=== PATIENT | male | born 1950 | race Caucasian/White ===

== ENCOUNTER 2017-09-19 06:50 | Outpatient (CLI) | payer OTHER | END 2017-09-19 07:04 | disposition home or self-care (01) | LOC: LAB 06:50 | DX: D68.8 Other specified coagulation defects (principal) ==

== ENCOUNTER 2017-10-10 06:19 | Outpatient (CLI) | payer OTHER | END 2017-10-10 06:29 | disposition home or self-care (01) | LOC: LAB 06:19 | DX: D68.8 Other specified coagulation defects (principal) ==

== ENCOUNTER → 2017-10-17 06:22 | Outpatient (CLI) | payer OTHER | END | disposition home or self-care (01) | LOC: LAB 06:22 | DX: D68.8 Other specified coagulation defects (principal) ==

== ENCOUNTER 2017-11-14 06:24 | Outpatient (CLI) | payer OTHER | END 2017-11-14 06:32 | disposition home or self-care (01) | LOC: LAB 06:24 | DX: D68.8 Other specified coagulation defects (principal) ==

== ENCOUNTER → 2017-12-05 06:20 | Outpatient (CLI) | payer OTHER | END | disposition home or self-care (01) | LOC: LAB 06:20 | DX: D47.3 Essential (hemorrhagic) thrombocythemia (principal); D51.0 Vitamin B12 deficiency anemia due to intrinsic factor deficiency; R97.0 Elevated carcinoembryonic antigen [CEA]; I26.09 Other pulmonary embolism with acute cor pulmonale; E03.9 Hypothyroidism, unspecified; E04.2 Nontoxic multinodular goiter; I10 Essential (primary) hypertension; D68.8 Other specified coagulation defects; E03.8 Other specified hypothyroidism; D50.8 Other iron deficiency anemias ==

== ENCOUNTER → 2018-01-29 06:30 | Outpatient (CLI) | payer OTHER | END | disposition home or self-care (01) | LOC: LAB 06:30 | DX: D47.3 Essential (hemorrhagic) thrombocythemia (principal); D51.0 Vitamin B12 deficiency anemia due to intrinsic factor deficiency; R97.0 Elevated carcinoembryonic antigen [CEA]; I26.09 Other pulmonary embolism with acute cor pulmonale; E03.9 Hypothyroidism, unspecified; E04.2 Nontoxic multinodular goiter; I10 Essential (primary) hypertension; D68.8 Other specified coagulation defects; D51.8 Other vitamin B12 deficiency anemias ==

== ENCOUNTER → 2018-02-16 06:19 | Outpatient (CLI) | payer OTHER | END | disposition home or self-care (01) | LOC: LAB 06:19 | DX: D47.3 Essential (hemorrhagic) thrombocythemia (principal); D51.0 Vitamin B12 deficiency anemia due to intrinsic factor deficiency; R97.0 Elevated carcinoembryonic antigen [CEA]; I26.09 Other pulmonary embolism with acute cor pulmonale; E03.8 Other specified hypothyroidism; E04.2 Nontoxic multinodular goiter; I10 Essential (primary) hypertension; D68.8 Other specified coagulation defects; D51.8 Other vitamin B12 deficiency anemias ==

== ENCOUNTER 2018-03-20 06:18 | Outpatient (CLI) | payer OTHER | END 2018-03-20 06:46 | disposition home or self-care (01) | LOC: LAB 06:18 | DX: D47.3 Essential (hemorrhagic) thrombocythemia (principal); D68.8 Other specified coagulation defects ==

== ENCOUNTER 2018-04-23 06:19 | Outpatient (CLI) | payer OTHER | END 2018-04-23 06:35 | disposition home or self-care (01) | LOC: LAB 06:19 → RAD 06:19 → LAB 06:35 | DX: E11.39 Type 2 diabetes mellitus with other diabetic ophthalmic complication (principal); I15.8 Other secondary hypertension; D68.32 Hemorrhagic disorder due to extrinsic circulating anticoagulants; D69.8 Other specified hemorrhagic conditions; I10 Essential (primary) hypertension; I11.9 Hypertensive heart disease without heart failure; E78.2 Mixed hyperlipidemia; E55.9 Vitamin D deficiency, unspecified ==

== ENCOUNTER → 2018-06-06 06:17 | Outpatient (CLI) | payer OTHER | END | disposition home or self-care (01) | LOC: LAB 06:17 | DX: D47.3 Essential (hemorrhagic) thrombocythemia (principal); D68.8 Other specified coagulation defects ==

== ENCOUNTER → 2018-06-15 06:09 | Outpatient (CLI) | payer OTHER | END | disposition home or self-care (01) | LOC: LAB 06:09 | DX: N40.1 Benign prostatic hyperplasia with lower urinary tract symptoms (principal) ==

== ENCOUNTER → 2018-07-06 06:27 | Outpatient (CLI) | payer OTHER | END | disposition home or self-care (01) | LOC: LAB 06:27 | DX: N40.0 Benign prostatic hyperplasia without lower urinary tract symptoms (principal); D50.8 Other iron deficiency anemias; I10 Essential (primary) hypertension; D68.8 Other specified coagulation defects ==

== ENCOUNTER → 2018-08-01 06:20 | Outpatient (CLI) | payer OTHER | END | disposition home or self-care (01) | LOC: LAB 06:20 | DX: D47.3 Essential (hemorrhagic) thrombocythemia (principal); D51.0 Vitamin B12 deficiency anemia due to intrinsic factor deficiency; R97.0 Elevated carcinoembryonic antigen [CEA]; I26.09 Other pulmonary embolism with acute cor pulmonale; E03.8 Other specified hypothyroidism; E04.2 Nontoxic multinodular goiter; I10 Essential (primary) hypertension; D50.8 Other iron deficiency anemias; D51.8 Other vitamin B12 deficiency anemias; D68.8 Other specified coagulation defects ==

== ENCOUNTER 2018-09-18 06:26 | Outpatient (CLI) | payer OTHER | END 2018-09-18 06:38 | disposition home or self-care (01) | LOC: LAB 06:26 | DX: I11.9 Hypertensive heart disease without heart failure (principal); E78.00 Pure hypercholesterolemia, unspecified; Z79.01 Long term (current) use of anticoagulants ==

== ENCOUNTER 2018-10-29 07:07 | Outpatient (CLI) | payer OTHER | END 2018-10-29 07:15 | disposition home or self-care (01) | LOC: LAB 07:07 | DX: D50.8 Other iron deficiency anemias (principal); I10 Essential (primary) hypertension; D68.8 Other specified coagulation defects ==

== ENCOUNTER 2018-11-17 07:12 | Outpatient (CLI) | payer OTHER | END 2018-11-17 07:27 | disposition home or self-care (01) | LOC: LAB 07:12 | DX: D50.8 Other iron deficiency anemias (principal); I10 Essential (primary) hypertension; D68.8 Other specified coagulation defects ==

== ENCOUNTER 2018-11-30 06:33 | Outpatient (CLI) | payer OTHER | END 2018-11-30 06:40 | disposition home or self-care (01) | LOC: LAB 06:33 | DX: D47.3 Essential (hemorrhagic) thrombocythemia (principal); D51.0 Vitamin B12 deficiency anemia due to intrinsic factor deficiency; R97.0 Elevated carcinoembryonic antigen [CEA]; I26.09 Other pulmonary embolism with acute cor pulmonale; E03.8 Other specified hypothyroidism; E04.2 Nontoxic multinodular goiter; I10 Essential (primary) hypertension; D50.8 Other iron deficiency anemias; D51.8 Other vitamin B12 deficiency anemias; E78.2 Mixed hyperlipidemia; D68.8 Other specified coagulation defects ==

== ENCOUNTER 2018-12-27 07:08 | Outpatient (CLI) | payer OTHER | END 2018-12-27 10:23 | disposition home or self-care (01) | LOC: LAB 07:08 | DX: I10 Essential (primary) hypertension (principal); N18.3 Chronic kidney disease, stage 3 (moderate) ==

== ENCOUNTER → 2018-12-29 08:18 | Outpatient (CLI) | payer OTHER | END | disposition home or self-care (01) | LOC: LAB 08:18 | DX: N18.3 Chronic kidney disease, stage 3 (moderate) (principal); I10 Essential (primary) hypertension; D68.8 Other specified coagulation defects ==

== ENCOUNTER 2019-01-17 06:22 | Outpatient (CLI) | payer OTHER | END 2019-01-17 06:28 | disposition home or self-care (01) | LOC: LAB 06:22 | DX: N40.0 Benign prostatic hyperplasia without lower urinary tract symptoms (principal); D50.8 Other iron deficiency anemias; I10 Essential (primary) hypertension; D68.8 Other specified coagulation defects ==

== ENCOUNTER 2019-02-19 06:25 | Outpatient (CLI) | payer OTHER | END 2019-02-19 06:30 | disposition home or self-care (01) | LOC: LAB 06:25 | DX: I12.9 Hypertensive chronic kidney disease with stage 1 through stage 4 chronic kidney disease, or unspecified chronic kidney disease (principal); Z79.01 Long term (current) use of anticoagulants; E78.00 Pure hypercholesterolemia, unspecified ==

== ENCOUNTER → 2019-04-02 06:44 | Outpatient (CLI) | payer OTHER | END | disposition home or self-care (01) | LOC: LAB 06:44 | DX: D68.8 Other specified coagulation defects (principal); D50.8 Other iron deficiency anemias ==

== ENCOUNTER 2019-04-10 07:21 | Outpatient (CLI) | payer OTHER | END 2019-04-10 07:30 | disposition home or self-care (01) | LOC: LAB 07:21 | DX: D51.0 Vitamin B12 deficiency anemia due to intrinsic factor deficiency (principal); D47.3 Essential (hemorrhagic) thrombocythemia; R97.0 Elevated carcinoembryonic antigen [CEA]; I26.09 Other pulmonary embolism with acute cor pulmonale; E03.8 Other specified hypothyroidism; E04.2 Nontoxic multinodular goiter; I10 Essential (primary) hypertension; D50.8 Other iron deficiency anemias; D51.8 Other vitamin B12 deficiency anemias; E79.2 Myoadenylate deaminase deficiency; D68.8 Other specified coagulation defects; K90.89 Other intestinal malabsorption ==

== ENCOUNTER 2019-04-15 15:54 | Outpatient (CLI) | payer OTHER | END 2019-04-15 16:33 | disposition home or self-care (01) | LOC: LAB 15:54 | DX: D68.8 Other specified coagulation defects (principal) ==

== ENCOUNTER 2019-05-14 06:22 | Outpatient (CLI) | payer OTHER | END 2019-05-14 06:28 | disposition home or self-care (01) | LOC: LAB 06:22 | DX: D68.8 Other specified coagulation defects (principal) ==

== ENCOUNTER 2019-06-05 06:30 | Outpatient (CLI) | payer OTHER | END 2019-06-05 06:36 | disposition home or self-care (01) | LOC: LAB 06:30 | DX: D68.8 Other specified coagulation defects (principal) ==

== ENCOUNTER 2019-06-18 06:28 | Outpatient (CLI) | payer OTHER | END 2019-06-18 06:39 | disposition home or self-care (01) | LOC: LAB 06:28 | DX: D68.8 Other specified coagulation defects (principal); N18.3 Chronic kidney disease, stage 3 (moderate); I10 Essential (primary) hypertension ==

== ENCOUNTER → 2019-07-09 06:11 | Outpatient (CLI) | payer OTHER | END | disposition home or self-care (01) | LOC: LAB 06:11 | DX: D40.0 Neoplasm of uncertain behavior of prostate (principal); D47.3 Essential (hemorrhagic) thrombocythemia; D51.0 Vitamin B12 deficiency anemia due to intrinsic factor deficiency; R97.0 Elevated carcinoembryonic antigen [CEA]; I26.09 Other pulmonary embolism with acute cor pulmonale; E03.8 Other specified hypothyroidism; E04.2 Nontoxic multinodular goiter; I10 Essential (primary) hypertension; D50.8 Other iron deficiency anemias; D51.8 Other vitamin B12 deficiency anemias; D68.8 Other specified coagulation defects; N40.0 Benign prostatic hyperplasia without lower urinary tract symptoms ==

== ENCOUNTER 2019-08-05 08:38 | Outpatient (CLI) | payer OTHER | END 2019-08-05 08:42 | disposition home or self-care (01) | LOC: LAB 08:38 | DX: D68.8 Other specified coagulation defects (principal) ==

== ENCOUNTER 2019-08-27 06:32 | Outpatient (CLI) | payer OTHER | END 2019-08-27 06:40 | disposition home or self-care (01) | LOC: LAB 06:32 | DX: D68.8 Other specified coagulation defects (principal) ==

== ENCOUNTER 2019-09-18 09:14 | Outpatient (CLI) | payer OTHER | END 2019-09-18 09:18 | disposition home or self-care (01) | LOC: LAB 09:14 | DX: D68.8 Other specified coagulation defects (principal) ==

== ENCOUNTER 2019-09-25 06:26 | Outpatient (CLI) | payer OTHER | END 2019-09-25 13:56 | disposition home or self-care (01) | LOC: LAB 06:26 | DX: D68.8 Other specified coagulation defects (principal) ==

== ENCOUNTER 2019-10-16 08:10 | Outpatient (CLI) | payer OTHER | END 2019-10-16 16:34 | disposition home or self-care (01) | LOC: LAB 08:10 | DX: D68.8 Other specified coagulation defects (principal) ==

== ENCOUNTER 2019-11-06 07:04 | Outpatient (CLI) | payer OTHER | END 2019-11-06 07:13 | disposition home or self-care (01) | LOC: LAB 07:04 | DX: D47.3 Essential (hemorrhagic) thrombocythemia (principal); D51.0 Vitamin B12 deficiency anemia due to intrinsic factor deficiency; R97.0 Elevated carcinoembryonic antigen [CEA]; I26.09 Other pulmonary embolism with acute cor pulmonale; E03.8 Other specified hypothyroidism; E04.2 Nontoxic multinodular goiter; D50.8 Other iron deficiency anemias; D51.8 Other vitamin B12 deficiency anemias; E55.9 Vitamin D deficiency, unspecified; D68.8 Other specified coagulation defects; N18.3 Chronic kidney disease, stage 3 (moderate); R80.8 Other proteinuria; I11.9 Hypertensive heart disease without heart failure ==

== ENCOUNTER → 2019-11-14 06:26 | Outpatient (CLI) | payer OTHER | END | disposition home or self-care (01) | LOC: LAB 06:26 | DX: D68.8 Other specified coagulation defects (principal) ==

== ENCOUNTER 2019-12-23 06:25 | Outpatient (CLI) | payer OTHER | END 2019-12-23 06:39 | disposition home or self-care (01) | LOC: LAB 06:25 | DX: D68.8 Other specified coagulation defects (principal); D47.3 Essential (hemorrhagic) thrombocythemia; D51.0 Vitamin B12 deficiency anemia due to intrinsic factor deficiency; R97.0 Elevated carcinoembryonic antigen [CEA]; I26.09 Other pulmonary embolism with acute cor pulmonale; E03.8 Other specified hypothyroidism; E04.2 Nontoxic multinodular goiter ==

== ENCOUNTER → 2020-01-14 13:48 | Outpatient (CLI) | payer OTHER | END | disposition home or self-care (01) | LOC: LAB 13:48 | DX: D68.8 Other specified coagulation defects (principal) ==

== ENCOUNTER → 2020-02-21 08:13 | Outpatient (CLI) | payer OTHER | END | disposition home or self-care (01) | LOC: LAB 08:13 | PROVIDERS: ATTEND Internal Medicine Hematology & Oncology | DX: D68.8 Other specified coagulation defects (principal) ==

== ENCOUNTER → 2020-03-13 08:09 | Outpatient (CLI) | payer OTHER | END | disposition home or self-care (01) | LOC: LAB 08:09 | PROVIDERS: ATTEND Internal Medicine Hematology & Oncology | DX: D50.8 Other iron deficiency anemias (principal); I10 Essential (primary) hypertension; D51.8 Other vitamin B12 deficiency anemias; E55.9 Vitamin D deficiency, unspecified; D68.8 Other specified coagulation defects; D47.3 Essential (hemorrhagic) thrombocythemia; D51.0 Vitamin B12 deficiency anemia due to intrinsic factor deficiency; R97.0 Elevated carcinoembryonic antigen [CEA]; I26.09 Other pulmonary embolism with acute cor pulmonale; E03.8 Other specified hypothyroidism; E04.2 Nontoxic multinodular goiter ==

== ENCOUNTER 2020-04-03 06:48 | Outpatient (CLI) | payer OTHER | END 2020-04-03 06:56 | disposition home or self-care (01) | LOC: LAB 06:48 | PROVIDERS: ATTEND Internal Medicine Hematology & Oncology | DX: D50.8 Other iron deficiency anemias (principal); D68.8 Other specified coagulation defects; E03.8 Other specified hypothyroidism; D47.3 Essential (hemorrhagic) thrombocythemia; D51.0 Vitamin B12 deficiency anemia due to intrinsic factor deficiency; R97.0 Elevated carcinoembryonic antigen [CEA]; I26.09 Other pulmonary embolism with acute cor pulmonale; E04.2 Nontoxic multinodular goiter; I10 Essential (primary) hypertension ==

== ENCOUNTER 2020-05-13 06:14 | Outpatient (CLI) | payer OTHER | END 2020-05-13 06:44 | disposition home or self-care (01) | LOC: LAB 06:14 | PROVIDERS: ATTEND Internal Medicine Hematology & Oncology | DX: D68.8 Other specified coagulation defects (principal); D50.8 Other iron deficiency anemias ==

== ENCOUNTER 2020-06-16 06:35 | Outpatient (CLI) | payer OTHER | END 2020-06-16 15:00 | disposition home or self-care (01) | LOC: LAB 06:35 | PROVIDERS: ATTEND Internal Medicine Hematology & Oncology | DX: D68.8 Other specified coagulation defects (principal); D50.8 Other iron deficiency anemias ==

== ENCOUNTER 2020-07-27 06:30 | Outpatient (CLI) | payer OTHER | END 2020-07-27 15:00 | disposition home or self-care (01) | LOC: LAB 06:30 | PROVIDERS: ATTEND Internal Medicine Cardiovascular Disease | DX: E03.8 Other specified hypothyroidism (principal); I11.9 Hypertensive heart disease without heart failure; E78.00 Pure hypercholesterolemia, unspecified; E11.9 Type 2 diabetes mellitus without complications; E55.9 Vitamin D deficiency, unspecified ==

== ENCOUNTER 2020-08-18 06:59 | Outpatient (CLI) | payer OTHER | END 2020-08-18 15:00 | disposition home or self-care (01) | LOC: LAB 06:59 | PROVIDERS: ATTEND Internal Medicine Hematology & Oncology | DX: D50.8 Other iron deficiency anemias (principal); I10 Essential (primary) hypertension; E03.8 Other specified hypothyroidism; D68.8 Other specified coagulation defects; D47.3 Essential (hemorrhagic) thrombocythemia; D51.0 Vitamin B12 deficiency anemia due to intrinsic factor deficiency; R97.0 Elevated carcinoembryonic antigen [CEA]; I26.09 Other pulmonary embolism with acute cor pulmonale; E04.2 Nontoxic multinodular goiter ==

== ENCOUNTER 2020-09-22 06:28 | Outpatient (CLI) | payer OTHER | END 2020-09-22 06:39 | disposition home or self-care (01) | LOC: LAB 06:28 | PROVIDERS: ATTEND Internal Medicine Hematology & Oncology | DX: D68.8 Other specified coagulation defects (principal) ==

== ENCOUNTER 2020-10-03 08:25 | Outpatient (CLI) | payer OTHER | END 2020-10-03 08:33 | disposition home or self-care (01) | LOC: LAB 08:25 | PROVIDERS: ATTEND Internal Medicine Hematology & Oncology | DX: D68.8 Other specified coagulation defects (principal) ==

== ENCOUNTER → 2020-11-03 06:14 | Outpatient (CLI) | payer OTHER | END | disposition home or self-care (01) | LOC: LAB 06:14 | PROVIDERS: ATTEND Internal Medicine Hematology & Oncology | DX: D68.8 Other specified coagulation defects (principal) ==

== ENCOUNTER 2020-11-30 07:15 | Outpatient (CLI) | payer OTHER | END 2020-11-30 07:24 | disposition home or self-care (01) | LOC: TOM 07:15 | PROVIDERS: ATTEND Internal Medicine Gastroenterology | DX: Z86.010 Personal history of colon polyps (principal) ==

== ENCOUNTER 2020-12-02 06:11 | Outpatient (CLI) | payer OTHER | END 2020-12-02 06:20 | disposition home or self-care (01) | LOC: LAB 06:11 | PROVIDERS: ATTEND Internal Medicine Cardiovascular Disease | DX: I11.9 Hypertensive heart disease without heart failure (principal); E03.8 Other specified hypothyroidism; Z79.01 Long term (current) use of anticoagulants ==

== ENCOUNTER → 2020-12-21 06:16 | Outpatient (CLI) | payer OTHER | END | disposition home or self-care (01) | LOC: LAB 06:16 | PROVIDERS: ATTEND Internal Medicine Hematology & Oncology | DX: I10 Essential (primary) hypertension (principal); R74.02 Elevation of levels of lactic acid dehydrogenase [LDH]; K76.89 Other specified diseases of liver; D50.8 Other iron deficiency anemias; D51.8 Other vitamin B12 deficiency anemias; D68.8 Other specified coagulation defects; E03.8 Other specified hypothyroidism; E04.2 Nontoxic multinodular goiter; R97.0 Elevated carcinoembryonic antigen [CEA]; I26.09 Other pulmonary embolism with acute cor pulmonale; D51.0 Vitamin B12 deficiency anemia due to intrinsic factor deficiency; D47.3 Essential (hemorrhagic) thrombocythemia ==

== ENCOUNTER 2021-02-02 06:11 | Outpatient (CLI) | payer OTHER | END 2021-02-02 06:16 | disposition home or self-care (01) | LOC: LAB 06:11 | PROVIDERS: ATTEND Internal Medicine Hematology & Oncology | DX: D50.8 Other iron deficiency anemias (principal); D68.8 Other specified coagulation defects ==

== ENCOUNTER 2021-03-04 10:07 | Outpatient (CLI) | payer OTHER | END 2021-03-04 10:12 | disposition home or self-care (01) | LOC: LAB 10:07 | PROVIDERS: ATTEND Internal Medicine Hematology & Oncology | DX: D68.8 Other specified coagulation defects (principal) ==

== ENCOUNTER → 2021-03-26 06:45 | Outpatient (CLI) | payer OTHER | END | disposition home or self-care (01) | LOC: LAB 06:45 | PROVIDERS: ATTEND Internal Medicine Cardiovascular Disease | DX: D68.8 Other specified coagulation defects (principal); I11.9 Hypertensive heart disease without heart failure; E11.9 Type 2 diabetes mellitus without complications; E03.8 Other specified hypothyroidism ==

== ENCOUNTER 2021-04-16 06:31 | Outpatient (CLI) | payer OTHER | END 2021-04-16 06:32 | disposition home or self-care (01) | LOC: LAB 06:31 | PROVIDERS: ATTEND Internal Medicine Hematology & Oncology | DX: D47.3 Essential (hemorrhagic) thrombocythemia (principal); D51.0 Vitamin B12 deficiency anemia due to intrinsic factor deficiency; R97.0 Elevated carcinoembryonic antigen [CEA]; I26.09 Other pulmonary embolism with acute cor pulmonale; E03.8 Other specified hypothyroidism; E04.2 Nontoxic multinodular goiter; I10 Essential (primary) hypertension; D50.8 Other iron deficiency anemias; R74.02 Elevation of levels of lactic acid dehydrogenase [LDH]; K76.89 Other specified diseases of liver; E55.9 Vitamin D deficiency, unspecified; R97.8 Other abnormal tumor markers ==